=== PATIENT | male | born 1985 | race Two or more races ===

== ENCOUNTER 2016-10-23 15:16 | Observation (INO) | payer BC ==
[2016-10-23] MEDS ORDERED: HYDROmorphONE/DILAUDID 1 MG/ML SYR IVP ONE ×2 (15:34→17:19)
[2016-10-23] MEDS ORDERED: ONDANSETRON 4 MG/2 ML VIAL IVP ONE (15:34)
[2016-10-23] MEDS ORDERED: NS 1,000 ML IV ONE (15:34)
--- NOTE | 2016-10-23 15:37 | EDPHY ---
H & P Stated Complaint: generalized abd pain and nausea Time Seen by Provider: 10/23/16 15:25 HPI/ROS: CHIEF COMPLAINT: Abdominal pain HISTORY OF PRESENT ILLNESS: Patient is a 31-year-old man with no significant past medical history who comes to the emergency department complaining of diffuse abdominal pain. He states that it began around 530 this morning is gradually worsened. He feels nauseous but has not vomited. No diarrhea. He has had 2 normal bowel movements. He tried eating yogurt and apple with no improvement or worsening of his symptoms. No fever. No history of abdominal surgery. No flank pain, testicle pain groin pain. REVIEW OF SYSTEMS: Constitutional: denies: chills, fever, recent illness, recent injury EENTM: denies: blurred vision, double vision, nose congestion Respiratory: denies: cough, shortness of breath Cardiac: denies: chest pain, irregular heart rate, lightheadedness, palpitations Gastrointestinal/Abdominal: See HPI Genitourinary: denies: dysuria, frequency, hematuria, pain Musculoskeletal: denies: joint pain, muscle pain Skin: denies: lesions, rash, jaundice, bruising Neurological: denies: headache, numbness, paresthesia, tingling, dizziness, weakness Hematologic/Lymphatic: denies: blood clots, easy bleeding, easy bruising Immunologic/allergic: denies: HIV/AIDS, transplant EXAM: GENERAL: Well-appearing, well-nourished and in no acute distress. HEAD: Atraumatic, normocephalic. EYES: Pupils equal round and reactive to light, extraocular movements intact, sclera anicteric, conjunctiva are normal. ENT: TMs normal, nares patent, oropharynx clear without exudates. Moist mucous membranes. NECK: Normal range of motion, supple without lymphadenopathy or JVD. LUNGS: Breath sounds clear to auscultation bilaterally and equal. No wheezes rales or rhonchi. HEART: Regular rate and rhythm without murmurs, rubs or gallops. ABDOMEN: Right lower quadrant tenderness on exam, no tenderness with heel tap or leg lift BACK: No CVA tenderness, no spinal tenderness, step-offs or deformities EXTREMITIES: Normal range of motion, no pitting or edema. No clubbing or cyanosis. NEUROLOGICAL: Cranial nerves II through XII grossly intact. Normal speech, normal gait. 5/5 strength, normal movement in all extremities, normal sensation PSYCH: Normal mood, normal affect. SKIN: Warm, dry, normal turgor, no visible rashes or lesions. Source: Patient Exam Limitations: No limitations - Personal History Current Tetanus/Diphtheria Vaccine: Unsure - Medical/Surgical History Hx Asthma: No Hx Chronic Respiratory Disease: No Hx Diabetes: No Hx Cardiac Disease: No Hx Renal Disease: No Hx Cirrhosis: No Hx Alcoholism: No Hx HIV/AIDS: No Hx Splenectomy or Spleen Trauma: No Other PMH: denies - Family History Significant Family History: No pertinent family hx - Social History Smoking Status: Never smoked Alcohol Use: None Drug Use: None Constitutional: Initial Vital Signs Temperature (C) 36.5 C 10/23/16 15:20 Heart Rate 82 10/23/16 15:20 Respiratory Rate 16 10/23/16 15:20 Blood Pressure 142/88 H 10/23/16 15:20 O2 Sat (%) 96 10/23/16 15:20 O2 Delivery Mode Room Air Allergies/Adverse Reactions: No Known Allergies Allergy (Unverified 10/23/16 15:19) Home Medications: Medication Instructions Recorded Hydrocodone/APAP 5/325 [[place] 1 - 2 tab PO Q4HRS PRN #30 tab 10/23/16 5/325 (*)] Medical Decision Making - Diagnostics Imaging Results: Imaging Impressions Abdomen CT 10/23/16 16:55 Impression: 1. Acute appendicitis. 2. No bowel obstruction, drainable abscesses or pneumoperitoneum. Findings and recommendations discussed with Emergency Department physician, MIA SHANNON at 18:07 hour, 10/23/2016. Final report concurs with initial preliminary interpretation. ED Course/Re-evaluation: The 6:00 p.m. the patient has appendicitis on CT scan. I discussed the case with Dr. Maurice Valiente who will come to evaluate. He request antibiotics and Toradol. Differential Diagnosis: Partial list of the Differential diagnosis considered include but were not limited to; appendicitis, biliary disease and although unlikely based on the history and physical exam, I also considered volvulus, hernia, torsion, pulse kidney stone. - Data Points Laboratory Results: Laboratory Results 10/23/16 15:40 10/23/16 15:40 10/23/16 10/23/16 15:40 15:40 WBC 15.14 10^3/uL H 10^3/uL (3.80-9.50) RBC 6.37 10^6/uL 10^6/uL (4.40-6.38) Hgb 14.5 g/dL g/dL (13.7-17.5) Hct 46.0 % % (40.0-51.0) MCV 72.2 fL L fL (81.5-99.8) MCH 22.8 pg L pg (27.9-34.1) MCHC 31.5 g/dL L g/dL (32.4-36.7) RDW 14.5 % % (11.5-15.2) Plt Count 271 10^3/uL 10^3/uL (150-400) MPV 10.0 fL fL (8.7-11.7) Neut % (Auto) 71.0 % % (39.3-74.2) Lymph % (Auto) 20.6 % % (15.0-45.0) [place] % (Auto) 6.9 % % (4.5-13.0) Eos % (Auto) 0.9 % % (0.6-7.6) Baso % (Auto) 0.2 % L % (0.3-1.7) Nucleat RBC Rel Count 0.0 % % (0.0-0.2) Absolute Neuts (auto) 10.75 10^3/uL H 10^3/uL (1.70-6.50) Absolute Lymphs (auto) 3.12 10^3/uL H 10^3/uL (1.00-3.00) Absolute Monos (auto) 1.04 10^3/uL H 10^3/uL (0.30-0.80) Absolute Eos (auto) 0.14 10^3/uL 10^3/uL (0.03-0.40) Absolute Basos (auto) 0.03 10^3/uL 10^3/uL (0.02-0.10) Absolute Nucleated RBC 0.00 10^3/uL 10^3/uL (0-0.01) Immature Gran % 0.4 % % (0.0-1.1) Immature Gran # 0.06 10^3/uL 10^3/uL (0.00-0.10) Sodium 142 mEq/L mEq/L (134-144) Potassium 4.3 mEq/L mEq/L (3.5-5.2) Chloride 104 mEq/L mEq/L (97-110) Carbon Dioxide 27 mEq/l mEq/l (22-31) Anion Gap 11 mEq/L mEq/L (8-16) BUN 12 mg/dL mg/dL (7-23) Creatinine 1.0 mg/dL mg/dL (0.7-1.3) Estimated GFR > 60 Glucose 102 mg/dL H mg/dL (70-100) Calcium 10.3 mg/dL mg/dL (8.5-10.4) Total Bilirubin 0.6 mg/dL mg/dL (0.1-1.4) Conjugated Bilirubin 0.3 mg/dL mg/dL (0.0-0.5) Unconjugated Bilirubin 0.3 mg/dL mg/dL (0.0-1.1) AST 33 IU/L IU/L (17-59) ALT 61 IU/L IU/L (21-72) Alkaline Phosphatase 76 IU/L IU/L (38-126) Total Protein 8.1 g/dL g/dL (6.3-8.2) Albumin 4.7 g/dL g/dL (3.5-5.0) Lipase 244.0 IU/L IU/L (23-300) Medications Given: Discontinued Medications Hydromorphone HCl (Dilaudid) 0.5 mg IVP EDNOW ONE Stop: 10/23/16 15:35 Last Admin: 10/23/16 15:55 Dose: 0.5 mg Hydromorphone HCl (Dilaudid) 0.5 mg IVP EDNOW ONE Stop: 10/23/16 17:20 Last Admin: 10/23/16 17:32 Dose: 0.5 mg Sodium Chloride (Ns) 1,000 mls @ 0 mls/hr IV ONCE ONE PRN Reason: Wide Open Stop: 10/23/16 15:35 Last Admin: 10/23/16 15:55 Dose: 1,000 mls Cefazolin Sodium/Dextrose (Ancef 1 Gm (Premix)) 50 mls @ 200 mls/hr IV EDNOW ONE PRN Reason: Protocol Stop: 10/23/16 18:25 Last Admin: 10/23/16 18:58 Dose: Not Given Cefoxitin Sodium 2 gm/ (Dextrose) 100 mls @ 200 mls/hr IV EDNOW ONE PRN Reason: Protocol Stop: 10/23/16 19:06 Last Admin: 10/23/16 19:29 Dose: 100 mls Ketorolac Tromethamine (Toradol) 30 mg IVP EDNOW ONE Stop: 10/23/16 18:11 Last Admin: 10/23/16 18:50 Dose: 30 mg Ondansetron HCl (Zofran) 4 mg IVP EDNOW ONE Stop: 10/23/16 15:35 Last Admin: 10/23/16 15:56 Dose: 4 mg Departure - Departure Disposition: [facility] Inpatient Acute Clinical Impression: Acute appendicitis Qualifiers: Acute appendicitis type: with localized peritonitis Qualified Code(s): K35.3 - Acute appendicitis with localized peritonitis Condition: Good
[2016-10-23 15:52] LABS: % IMMATURE GRANULYOCYTES 0.4 % (0.0-1.1); ABSOLUTE IMMATURE GRANULOCYTES 0.06 10^3/uL (0.00-0.10); ADD DIFF? NO; ADD MORPH? NO; ADD SCAN? NO; ATYPICAL LYMPHOCYTE FLAG 0 (0-99); FRAGMENT RBC FLAG 0 (0-99); HEMOGLOBIN 14.5 g/dL (13.7-17.5); LEFT SHIFT FLG 0 (0-99); LIPEMIA HEMOLYSIS FLAG 80 (0-99); MEAN CELL HEMOGLOBIN 22.8 pg (27.9-34.1); MEAN CELL HEMOGLOBIN CONCENTR. 31.5 g/dL (32.4-36.7); MEAN CELL VOLUME 72.2 fL (81.5-99.8); PLATELET CLUMPS FLAG 10 (0-99); PLATELET COUNT 271 10^3/uL (150-400); RED BLOOD CELL COUNT 6.37 10^6/uL (4.40-6.38); RED CELL DISTRIBUTION WIDTH 14.5 % (11.5-15.2)
[2016-10-23 16:10] LABS: ALANINE AMINOTRANSFERASE 61 IU/L (21-72); ALBUMIN 4.7 g/dL (3.5-5.0); ALKALINE PHOSPHATASE 76 IU/L (38-126); ANION GAP 11 mEq/L (8-16); ASPARTATE AMINOTRANSFERASE 33 IU/L (17-59); BILIRUBIN,TOTAL 0.6 mg/dL (0.1-1.4); BILIRUBIN-CONJUGATED 0.3 mg/dL (0.0-0.5); BILIRUBIN-UNCONJUGATED 0.3 mg/dL (0.0-1.1); CALCIUM 10.3 mg/dL (8.5-10.4); CARBON DIOXIDE 27 mEq/l (22-31); CHLORIDE 104 mEq/L (97-110); GLOMERULAR FILTRATION RATE > 60; GLUCOSE 102 mg/dL (70-100); POTASSIUM 4.3 mEq/L (3.5-5.2); SODIUM 142 mEq/L (134-144); TOTAL PROTEIN 8.1 g/dL (6.3-8.2)
[2016-10-23] MEDS ORDERED: IOPAMIDOL (ISOVUE-300) 100 ML BTL ONE (17:29)
[2016-10-23] MEDS ORDERED: KETOROLAC 30 MG/1 ML SDV IVP ONE (18:10)
[2016-10-23] MEDS ORDERED: cefOXitin SODIUM 2 GM in D5W 100 ML IV ONE (18:37)
[2016-10-23] MEDS ORDERED: ONDANSETRON 4 MG/2 ML VIAL ONE ×2 (18:42→19:59)
--- NOTE | 2016-10-23 19:23 | GHP ---
[f rep st] PREOP HISTORY AND PHYSICAL DATE OF ADMISSION: 10/23/2016 REASON FOR EVALUATION: Acute appendicitis HISTORY OF PRESENT ILLNESS: 31-year-old healthy male with sudden onset diffuse abdominal pain starting this morning. He was in his usual state of health last evening. He denies any antecedent history of similar complaints. Throughout the course of the day, the pain has continued to worsen. Associated with nausea and vomiting. Bowel movements soft without diarrhea. No voiding complaints. The trip to the hospital was uncomfortable. PAST MEDICAL HISTORY: None. PAST SURGICAL HISTORY: None. MEDICATIONS: None. ALLERGIES: No known drug allergies. SOCIAL HISTORY: No alcohol, no tobacco. He is he has 2 children. 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 FAMILY HISTORY: Noncontributory. REVIEW OF SYSTEMS: Notable for above GI complaints only. Otherwise, negative 10 point review. PHYSICAL EXAMINATION: VITAL SIGNS: Temperature 36.5 blood pressure 140/90, pulse 82, respirations 16. The patient is alert, appropriate. Uncomfortable. Pale in appearance. Diaphoretic in appearance. Anicteric. No cervical lymphadenopathy. HEART: Regular. LUNGS: Clear. ABDOMEN: Soft, distended. Diffuse right lower quadrant tenderness without rebound or guarding. Negative Rovsing sign. Negative obturator sign. Extremities unremarkable. NEUROLOGIC EXAM: Unremarkable. SKIN: Clammy. LABORATORY DATA: White count 15, hemoglobin 15, platelets of 270. Electrolytes within reference range. Liver enzymes within reference range. CT imaging directly reviewed on PACS - 10 mm appendix with periappendiceal inflammatory change. No free air. No free fluid. IMPRESSION: Acute appendicitis. RECOMMENDATIONS: Laparoscopic appendectomy. Surgical risks and benefits were explained to the patient and including but not limited to bleeding, infection, open conversion, as well as alternative diagnoses. Anticipated recovery was discussed. They would like to review their options and notify us of their decision to proceed. We also discussed the possibility for ongoing antibiotic therapy, which I do not recommend, given the patient's toxic appearance. Final recommendations to follow. /[id number]/MODL MTDD
[2016-10-23] MEDS ORDERED: BUPIVACAINE/EPI 0.5% 30 ML SDV ONE (19:53)
[2016-10-23] MEDS ORDERED: MIDAZOLAM 2 MG/2 ML VIAL ONE (19:57)
[2016-10-23] MEDS ORDERED: PROPOFOL 200 MG/20 ML VIAL ONE (19:58)
[2016-10-23] MEDS ORDERED: fentaNYL 100 MCG/2 ML INJ ONE (19:58)
[2016-10-23] MEDS ORDERED: ROCURONIUM 50 MG/5 ML VIAL ONE (19:59)
[2016-10-23] MEDS ORDERED: DEXAMETHASONE 4 MG/ML VIAL ONE ×2 (19:59)
[2016-10-23] MEDS ORDERED: LIDOCAINE 2% 5 ML SDV ONE (19:59)
[2016-10-23] MEDS ORDERED: SUGAMMADEX SODIUM 200 MG/2 ML VIAL IVP ONE (19:59)
[2016-10-23] MEDS ORDERED: ONDANSETRON 4 MG/2 ML VIAL IVP PRN (21:14)
[2016-10-23] MEDS ORDERED: HYDROCODONE/APAP 5/325 TAB PO PRN (21:14)
[2016-10-23] MEDS ORDERED: ZOLPIDEM TARTRATE 5 MG TAB PO PRN (21:14)
[2016-10-23] MEDS ORDERED: HYDROmorphONE/DILAUDID 1 MG/ML SYR IVP PRN (21:14)
--- NOTE | 2016-10-23 21:14 | POSTOPPROG ---
Post Op Note Date of Operation: 10/23/16 Surgeon: Maurice Valiente Anesthesiologist: Cassie Anesthesia: GET(General Endotracheal) Pre-op Diagnosis: acute appendicitis Post-op Diagnosis: same Procedure: lap appy Findings: suppur appendix Inf/Abcess present in the surg proc area at time of surgery?: Yes Depth: Organ Space EBL: Minimal Complications: no immediate Specimen(s): appendix
[2016-10-23] MEDS ORDERED: LR 1,000 ML IV SCH (21:30)
--- NOTE | 2016-10-23 22:04 | GOP ---
[f rep st] OPERATIVE REPORT DATE OF OPERATION: SURGEON: Maurice Valiente MD ANESTHESIA: General. ANESTHESIOLOGIST: Dr. Matthews. PREOPERATIVE DIAGNOSIS: Acute appendicitis. POSTOPERATIVE DIAGNOSIS: Acute appendicitis. PROCEDURE PERFORMED: Laparoscopic appendectomy. FINDINGS: As below. INDICATIONS: A 31-year-old healthy male with acute appendicitis. He is undergoing a laparoscopic appendectomy at this time. DESCRIPTION OF PROCEDURE: General anesthesia was induced. The abdomen was pre- injected with 0.5% Marcaine with epinephrine. A vertical infraumbilical cutdown was created. A 10 mm trocar was placed under direct visualization. The abdomen was insufflated to 15 mmHg. Two additional 5 mm lower midline ports were inserted. The appendix was acutely thickened with suppuration, without evidence of perforation. The mesoappendix was divided with Harmonic Scalpel. The base was transected flush with the cecum with an endoscopic CORBY stapler. The specimen was brought through the umbilical port site intact using EndoCatch pouch. Satisfactory hemostasis was assured. Trocars removed under direct visualization. The infraumbilical midline fascia was closed with a running Vicryl suture. The wounds were closed with Monocryl suture followed by Dermabond. The patient was taken to recovery uneventfully. /[id number]/MODL MTDD
[2016-10-23 22:36] VITALS: RESP 16
[2016-10-24] MEDS: KETOROLAC 15 MG/1 ML SDV IVP SCH ×2 (01:15→05:15)
[2016-10-24 03:40] VITALS: O2SAT 96
[2016-10-24 07:58] VITALS: BP 112/60; PULSE 112; TEMP 98.4
--- NOTE | 2016-10-24 08:32 | SOAPPROG ---
SOAP Progress Note Assessment/Plan: Assessment:no c/o. min pain. avss. abd soft, incis clean. doing well. home today. Plan: 10/24/16 08:31 Objective: Vital Signs Temp Pulse Resp BP Pulse Ox 36.9 C 112 H 16 112/60 96 10/24/16 07:57 10/24/16 07:57 10/24/16 07:57 10/24/16 07:57 10/24/16 07:57 10/23/16 10/24/16 10/25/16 05:59 05:59 05:59 Intake Total 2300 Output Total 10 Balance 2290 ICD10 Worksheet Patient Problems: Problems Problem Status Onset Acute appendicitis Acute
== END 2016-10-24 11:00 | disposition home or self-care (01) ==
LOC: F3N 22:08
PROVIDERS: ADMIT Surgery; ATTEND Surgery
PROC: 0DTJ4ZZ Resection of Appendix, Percutaneous Endoscopic Approach (ICD-10-PCS; principal; 2016-10-23 20:05)
DX: K35.3 Acute appendicitis with localized peritonitis (principal)
CPT/HCPCS: 44970; 74177; C1727; G0378; J0694; J1100; J1170; J1885; J2250; J2405; J2704; J3010; Q9967